=== PATIENT | female | born 1985 | race Hispanic/Latino ===

== ENCOUNTER 2020-12-09 01:09 | Emergency (ER) | payer OTHER ==
[~2020-12-09] VITALS: Ht 160 cm; Wt 68.5 kg
[2020-12-09 01:47] VITALS: BP 135/86
[2020-12-09 01:57] LABS: BILIRUBIN,URINE Negative (NEGATIVE); COLOR,URINE Yellow (YELLOW); GLUCOSE, URINE (UA) Negative (NEGATIVE); KETONES,URINE Negative (NEGATIVE); LEUKOCYTE ESTERASE ,URINE Trace (NEGATIVE); NITRATE,URINE Negative (NEGATIVE); OCCULT BLOOD,URINE Trace (NEGATIVE); PH,URINE 5.5 (5.0-8.0); PROTEIN,URINE Negative (NEGATIVE)
[2020-12-09] MEDS ORDERED: ONDANSETRON 4MG INJ IVP ONE (02:00)
[2020-12-09] MEDS ORDERED: 0.9%NACL 1000ML 1,000 ML IV ONE (02:00)
[2020-12-09] MEDS ORDERED: MORPHINE 4 MG SYG IVP ONE (02:00)
[2020-12-09 02:04] LABS: HCG,QUAL RESULT NEGATIVE (NEGATIVE)
[2020-12-09 02:05] LABS: APPEARANCE,URINE CLOUDY (CLEAR)
[2020-12-09 02:05] LABS: BASOPHILS % (AUTO) 0.2 % (0.0-5.0); EOSINOPHILS % (AUTO) 1.7 % (0.0-8.0); HEMATOCRIT 41.2 % (36-48); LYMPHOCYTES % (AUTO) 25.3 % (21.0-51.0); MEAN CORPUSCULAR HEMOGLOBIN 27.5 pg (27.0-33.0); MEAN CORPUSCULAR HGB CONC 32.3 g/dL (32.0-36.0); MEAN CORPUSCULAR VOLUME 85.3 fL (79-99); MONOCYTES % (AUTO) 6.5 % (3.0-13.0); NEUTROPHILS % (AUTO) 65.8 % (40.0-77.0); PLATELET COUNT (AUTO) 268 K/uL (130-400); RED BLOOD CELL COUNT(AUTO) 4.83 MIL/uL (4.00-5.50); RED CELL DISTRIBUTION WIDTH 12.8 % (11.0-15.5); WHITE BLOOD COUNT (AUTO) 12.8 K/uL (4.8-10.8)
[2020-12-09 02:15] LABS: CREATININE 0.9 mg/dL (0.5-1.5); POTASSIUM 3.8 mmol/L (3.5-5.1)
[2020-12-09 02:19] LABS: BACTERIA,URINE Many /HPF (None Seen); CALCIUM OXALATE CRYSTALS,UR Moderate /LPF (None Seen)
[2020-12-09 02:20] LABS: ALBUMIN 3.8 g/dL (3.5-5.0); BILIRUBIN,TOTAL 0.2 mg/dL (0.2-1.0); TOTAL PROTEIN, SERUM 7.7 g/dL (6.0-8.3)
[2020-12-09] MEDS ORDERED: IOHEXOL 350 MG/ML 100ML INFUS..BTL IV ONE (02:35)
[2020-12-09 02:54] VITALS: BP 122/78
[2020-12-09] MEDS ORDERED: HYDROMORPHONE 1 MG INJ ONE (04:39)
== END 2020-12-09 06:15 | disposition home or self-care (01) ==
LOC: EDH 01:09
DX: N20.1 Calculus of ureter (principal); Z79.899 Other long term (current) drug therapy
CPT/HCPCS: 36415; 74177; 80053; 81001; 81025; 85025; 87088; 96361; 96374; 96375; 99285; J1170; J2270; J2405; Q9967